=== PATIENT | male | born 1960 | race Hispanic/Latino ===

== ENCOUNTER 2020-09-06 13:52 | Inpatient (IN) | payer SELFPAY ==
[2020-09-06] MEDS ORDERED: Norepinephrine 8 MG/0.9% NS 250 ML ONE ×2 (13:57→19:58)
[2020-09-06 14:35] LABS: #Lymphocytes 0.8 thou/uL (1.20-3.40); #Monocytes 0.5 thou/uL (0.11-0.59); #Neutrophils 9.8 thou/uL (1.40-6.50); %Basophils 0.3 % (0.0-1.0); %Eosinophils 0.4 % (0.0-10.0); %Lymphocytes 7.3 % (21.0-51.0); %Monocytes 4.6 % (0.0-10.0); %Neutrophils 87.5 % (42.0-75.0); Hemoglobin 7.7 g/dL (14.0-18.0); Mean Corpuscular HGB CONC 35.1 g/dL (32.0-36.0); Mean Corpuscular Hemoglobin 37.4 pg (27.0-31.0); Platelet Count 153 thou/uL (130-400); RBC Distribution Width 16.4 % (11.5-14.5); Red Blood Cell (RBC) Count 2.05 mill/uL (4.70-6.10); White Blood Cell (WBC) Count 11.2 thou/uL (4.8-10.8)
[2020-09-06 14:40] LABS: INR-International Normal Ratio 2.2; Prothrombin Time 24.7 sec (12.0-14.7)
[2020-09-06 14:41] LABS: PTT 45.8 sec (22.9-36.1)
[2020-09-06 14:48] LABS: ALT (SGPT) 54 U/L (8-55); AST (SGOT) 173 U/L (5-34); Albumin 2.1 g/dL (3.5-5.0); Alkaline Phosphatase 196 U/L (40-110); Bilirubin, Total 22.4 mg/dL (0.2-1.2); Protein, Total 4.8 g/dL (6.0-8.3)
[2020-09-06 14:49] LABS: ALT (SGPT) 55 U/L (8-55); AST (SGOT) 184 U/L (5-34); Albumin 2.1 g/dL (3.5-5.0); Alkaline Phosphatase 201 U/L (40-110); Anion Gap 25 mmol/L (10-20); BUN (Urea Nitrogen) 49 mg/dL (8.4-25.7); Bilirubin, Total 22.1 mg/dL (0.2-1.2); Calc. Creatinine Clearance 0 mL/min (70-130); Calcium 6.4 mg/dL (7.8-10.44); Carbon Dioxide 15 mmol/L (22-29); Chloride 88 mmol/L (98-107); Globulin 2.6 g/dL (2.4-3.5); Glucose 86 mg/dL (70-105); Protein, Total 4.7 g/dL (6.0-8.3); Sodium 125 mmol/L (136-145)
[2020-09-06 14:50] LABS: Acetaminophen Less than 6.0 mcg/mL (10.0-30.0); Alcohol Less than 10 mg/dL (Less than 10); Salicylate Less than 8.0 mg/dL (15.0-30.0)
[2020-09-06 14:54] LABS: Potassium 2.8 mmol/L (3.5-5.1)
[2020-09-06 14:55] LABS: Anisocytosis SLIGHT = 6-15 cells (100X) (0-5/hpf); MDiff Complete? YES; Macrocytosis SLIGHT = 6-15 cells (100X) (0-5/hpf); Platelet Morphology Comment Appears Adequate; Polychromasia MODERATE = 3-4 cells (100X) (0-2/hpf); Schistocytes SLIGHT = 2-5 cells (100X) (0-1/hpf); Target Cells MODERATE= 6-15 cells (100X) (0-1/hpf)
[2020-09-06] MEDS ORDERED: Succinylcholine 200 MG/10 ml SYRINGE FS ONE (15:00)
[2020-09-06 15:10] LABS: CKMB 5.1 ng/mL (0-6.6)
[2020-09-06 15:17] LABS: Bilirubin, Direct 16.4 mg/dL (0.1-0.3)
[2020-09-06 15:26] LABS: Bilirubin 2+ (Negative); Blood, Urine 3+ (Negative); Clarity Turbid (Clear); Glucose, Urine (Dipstick) 70 mg/dL (Negative); Ketone, Urine Negative (Negative); Leukocyte Negative Leu/uL (Negative); Nitrite Negative (Negative); Protein, Urine (Dipstick) 20 mg/dL (Neg-Trace); RBC/HPF 0-3 HPF (0-3); Specific Gravity, Urine 1.009 (1.002-1.036); Squamous Epithelial 0-3 HPF (0-3); Urobilinogen Normal mg/dL (Less than 2); WBC/HPF 0-3 HPF (0-3); pH, Urine 6.5 (5.0-9.0)
[2020-09-06 15:27] LABS: Amphetamine Not Detected (NotDetected); Barbiturates Screen Not Detected (NotDetected); Benzodiazepine Screen Not Detected (NotDetected); Cocaine Metabolite Screen Not Detected (NotDetected); Medtox Control Line Valid? VALID (VALID); Medtox Reader # READER 1; Methadone Not Detected (NotDetected); Methamphetamine Not Detected (NotDetected); Opiate Screen Not Detected (NotDetected); Oxycodone Screen Not Detected (NotDetected); Phencyclidine (PCP) Not Detected (NotDetected); THC/Cannabinoid Screen Not Detected (NotDetected); Tricyclic Screen Not Detected (NotDetected)
[2020-09-06 15:28] LABS: Bacteria/HPF 1+ HPF (None Seen)
[2020-09-06] MEDS ORDERED: Potassium Chloride 40 MEQ in Sodium Chloride 0.9% 250 ML 250 ML IVPB SCH (15:30)
[2020-09-06 15:59] LABS: SARS-CoV-2 NAA Rapid Test Not Detected (NotDetected)
[2020-09-06] MEDS ORDERED: Cefepime 2 GM VIAL ONE (15:59)
[2020-09-06 18:00] LABS: Lactic Acid 3.9 mmol/L (0.5-2.2)
[2020-09-06] MEDS ORDERED: METRONIDAZOLE IVPB ONE (18:00)
[2020-09-06] MEDS ORDERED: VANCOMYCIN 1.75 GM/350 ML BAG 1.75 GM in Premix Bag 1 BAG IVPB ONE (18:15)
[2020-09-06] MEDS ORDERED: Magnesium 2 GM/50 ML BAG (IN WATER) ONE (19:03)
[2020-09-06 19:23] LABS: HBCM Index 0.05 S/CO (0-0.79); HBSAg Index 0.15 S/CO (0-0.99); Hep A IgM AB Non-Reactive (NonReactive); Hep A IgM S/CO 0.11 S/CO (0-0.79); Hep B Surf Ag Non-Reactive S/CO (NonReactive); Hep C IgG Ab Non-Reactive (NonReactive); Hep C Index 0.39 S/CO (0-0.79); Hepatitis B Core IgM Abs Non-Reactive (NonReactive)
[2020-09-06] MEDS ORDERED: Albumin 25% 25 GM/100 ML BOT IVPB SCH (20:11)
[2020-09-06] MEDS ORDERED: Ondansetron PF 4 MG/2 ML Vial IVP PRN (20:49)
[2020-09-06] MEDS ORDERED: Multivitamins, Adult 10 ML, Folic Acid 1 MG, Thiamine HCl 100 MG in Dextrose 5 %-0.45 %... IV SCH (21:00)
[2020-09-06] MEDS ORDERED: Sodium Bicarb 50 MEQ/50 ML Abboject 8.4% SYRINGE IVP SCH (22:00)
[2020-09-06 22:42] LABS: Anion Gap 25 mmol/L (10-20); BUN (Urea Nitrogen) 48 mg/dL (8.4-25.7); Calc. Creatinine Clearance 0 mL/min (70-130); Calcium 6.7 mg/dL (7.8-10.44); Carbon Dioxide 15 mmol/L (22-29); Chloride 94 mmol/L (98-107); Glucose 121 mg/dL (70-105); Sodium 131 mmol/L (136-145)
[2020-09-06 22:48] LABS: Potassium 2.5 mmol/L (3.5-5.1)
[2020-09-06 22:55] VITALS: BMI 33.5
[2020-09-06] MEDS: Multivitamins, Adult 10 ML, Folic Acid 1 MG, Thiamine HCl 100 MG in Dextrose 5 %-0.45 %... IV SCH (23:08)
[2020-09-06] MEDS: Octreotide Acetate 100 MCG/ML VIAL SC SCH (23:36)
[2020-09-07] MEDS ORDERED: Potassium Chloride 40 MEQ in Premix Bag 1 BAG IVPB SCH ×2 (00:15→06:15)
[2020-09-07] MEDS ORDERED: Magnesium 2 GM/50 ML 2 GM in Premix Bag 1 BAG IVPB SCH (00:15)
[2020-09-07] MEDS: Norepinephrine 8 MG/0.9% NS 250 ML IVPB SCH ×4 (00:16→16:28)
[2020-09-07 05:10] LABS: #Lymphocytes 0.6 thou/uL (1.20-3.40); #Monocytes 0.5 thou/uL (0.11-0.59); #Neutrophils 8.3 thou/uL (1.40-6.50); %Basophils 0.4 % (0.0-1.0); %Eosinophils 0.4 % (0.0-10.0); %Lymphocytes 6.3 % (21.0-51.0); %Monocytes 5.4 % (0.0-10.0); %Neutrophils 87.5 % (42.0-75.0); Hemoglobin 6.8 g/dL (14.0-18.0); Mean Corpuscular HGB CONC 35.4 g/dL (32.0-36.0); Mean Corpuscular Hemoglobin 37.8 pg (27.0-31.0); Mean Platelet Volume 7.3 fL (7.4-10.4); Platelet Count 133 thou/uL (130-400); RBC Distribution Width 16.2 % (11.5-14.5); Red Blood Cell (RBC) Count 1.81 mill/uL (4.70-6.10); White Blood Cell (WBC) Count 9.5 thou/uL (4.8-10.8)
[2020-09-07 05:50] LABS: ALT (SGPT) 48 U/L (8-55); AST (SGOT) 148 U/L (5-34); Albumin 3.2 g/dL (3.5-5.0); Alkaline Phosphatase 162 U/L (40-110); Anion Gap 27 mmol/L (10-20); BUN (Urea Nitrogen) 47 mg/dL (8.4-25.7); Bilirubin, Total 23.7 mg/dL (0.2-1.2); Calc. Creatinine Clearance 33 mL/min (70-130); Calcium 6.9 mg/dL (7.8-10.44); Carbon Dioxide 15 mmol/L (22-29); Chloride 94 mmol/L (98-107); Globulin 2.2 g/dL (2.4-3.5); Glucose 179 mg/dL (70-105); Magnesium 2.5 mg/dL (1.6-2.6); Protein, Total 5.4 g/dL (6.0-8.3); Sodium 133 mmol/L (136-145)
[2020-09-07 06:00] LABS: Potassium 2.6 mmol/L (3.5-5.1)
[2020-09-07] MEDS: Midodrine HCl 5 MG TAB PO SCH ×5 (06:36→21:25)
[2020-09-07] MEDS: Octreotide Acetate 100 MCG/ML VIAL SC SCH ×3 (06:40→21:18)
[2020-09-07] MEDS ORDERED: Oxazepam 10 MG CAP PO PRN (07:35)
[2020-09-07] MEDS ORDERED: Pantoprazole 40 MG VIAL IVP SCH (09:00)
[2020-09-07] MEDS ORDERED: Midodrine HCl 5 MG TAB PO SCH ×2 (09:15→10:30)
[2020-09-07] MEDS ORDERED: Lorazepam 2 MG/ML VIAL SLOW IVP PRN ×2 (09:52→09:57)
[2020-09-07] MEDS ORDERED: Magnesium 2 GM/50 ML 2 GM in Premix Bag 1 BAG IVPB PRN (09:52)
[2020-09-07] MEDS ORDERED: Lactated Ringer's 500 ML IV SCH ×2 (10:00)
[2020-09-07] MEDS: Lactated Ringer's 1,000 ML IV SCH ×2 (10:26→23:00)
[2020-09-07 10:49] LABS: Actual Bicarbonate (HCO3a) 16.7 mEq/L (22-28); Base Excess (BEa) -6.9 mEq/L (-2.0 to +3.0); CO2 Tension 26.3 mmHg (35.0-45.0); Hemoglobin (Hb) 7.3 g/dL (14.0-18.0); Potassium - ABG Lab 2.57 mmol/L (3.70-5.30); pH, Arterial 7.42 (7.35-7.45)
[2020-09-07 10:50] LABS: O2 Tension (PaO2), arterial 53.5 mmHg (80.0-100.0)
[2020-09-07 10:51] LABS: Puncture Site LBA
[2020-09-07] MEDS: Phytonadione 5 MG TAB PO SCH (11:16)
[2020-09-07] MEDS ORDERED: Sodium Chloride 0.9% (PF) 10 ML VIAL FS PRN (11:45)
[2020-09-07 13:18] LABS: Creatinine, Urine 75.11 mg/dL (63-166); Sodium, Urine Less than 20 mmol/L (Not Available)
[2020-09-07] MEDS: Cefepime 1 GM in Sodium Chloride 0.9% 100 ML IVPB SCH (16:28)
[2020-09-07] MEDS: Fluconazole In NaCl,Iso-Osm 200 MG in Premix Bag 1 BAG IVPB SCH (17:58)
[2020-09-07 18:35] LABS: Hemoglobin 7.7 g/dL (14.0-18.0); Platelet Count 131 thou/uL (130-400)
[2020-09-07 18:53] LABS: Vancomycin, Random 15.3 ug/mL (See Comment)
[2020-09-07] MEDS ORDERED: Vancomycin HCl 750 MG in Sodium Chloride 0.9% 250 ML 250 ML IVPB SCH (20:00)
[2020-09-07 20:36] LABS: Potassium 2.4 mmol/L (3.5-5.1)
[2020-09-07] MEDS ORDERED: Potassium ACETATE 40 MEQ in Sodium Chloride 0.9% 250 ML 250 ML IV SCH (20:45)
[2020-09-07] MEDS: Pantoprazole 40 MG VIAL IVP SCH (21:18)
[2020-09-07] MEDS ORDERED: Norepinephrine 8 MG/0.9% NS 250 ML ONE (21:21)
[2020-09-07 21:46] LABS: Actual Bicarbonate (HCO3a) 18.2 mEq/L (22-28); CO2 Tension 30.9 mmHg (35.0-45.0); Calcium, Ionized (arterial) 0.94 mmol/L (1.12-1.30); Carboxyhemoglobin (COHb) 1.5 gm% (0.0-3.0); Potassium - ABG Lab 2.38 mmol/L (3.70-5.30); pH, Arterial 7.39 (7.35-7.45)
[2020-09-07 21:48] LABS: ALV-art Gradient 165.055 mmHg (0-20); Puncture Site RBA
[2020-09-07] MEDS: Multivitamins, Adult 10 ML, Folic Acid 1 MG, Thiamine HCl 100 MG in Dextrose 5 %-0.45 %... IV SCH (23:00)
[2020-09-07] MEDS: Lorazepam 2 MG/ML VIAL SLOW IVP PRN (23:16)
[2020-09-07] MEDS: Haloperidol Lactate 5 MG/ML VIAL IM PRN (23:17)
[2020-09-08] MEDS: Lorazepam 2 MG/ML VIAL SLOW IVP PRN ×3 (01:12→19:01)
[2020-09-08] MEDS: Norepinephrine 8 MG/0.9% NS 250 ML IVPB SCH ×7 (03:00→22:34)
[2020-09-08] MEDS: Haloperidol Lactate 5 MG/ML VIAL IM PRN (04:45)
[2020-09-08 04:54] LABS: Phosphorus 2.9 mg/dL (2.3-4.7)
[2020-09-08 05:02] LABS: Prothrombin Time 23.1 sec (12.0-14.7)
[2020-09-08 05:05] LABS: ALT (SGPT) 57 U/L (8-55); AST (SGOT) 140 U/L (5-34); Albumin 2.9 g/dL (3.5-5.0); Alkaline Phosphatase 155 U/L (40-110); Anion Gap 17 mmol/L (10-20); BUN (Urea Nitrogen) 38 mg/dL (8.4-25.7); Calc. Creatinine Clearance 53 mL/min (70-130); Carbon Dioxide 20 mmol/L (22-29); Chloride 103 mmol/L (98-107); Globulin 2.2 g/dL (2.4-3.5); Glucose 199 mg/dL (70-105); Magnesium 2.1 mg/dL (1.6-2.6); Potassium 2.6 mmol/L (3.5-5.1); Protein, Total 5.1 g/dL (6.0-8.3); Sodium 137 mmol/L (136-145)
[2020-09-08 05:08] LABS: #Eosinphils 0.1 thou/uL (0.0-0.7); #Lymphocytes 0.8 thou/uL (1.20-3.40); #Monocytes 0.6 thou/uL (0.11-0.59); #Neutrophils 8.9 thou/uL (1.40-6.50); %Eosinophils 0.5 % (0.0-10.0); %Lymphocytes 7.7 % (21.0-51.0); %Monocytes 5.6 % (0.0-10.0); %Neutrophils 86.2 % (42.0-75.0); Hemoglobin 7.7 g/dL (14.0-18.0); Mean Corpuscular HGB CONC 34.9 g/dL (32.0-36.0); Mean Platelet Volume 7.1 fL (7.4-10.4); Platelet Count 129 thou/uL (130-400); RBC Distribution Width 19.6 % (11.5-14.5); Red Blood Cell (RBC) Count 2.14 mill/uL (4.70-6.10); White Blood Cell (WBC) Count 10.3 thou/uL (4.8-10.8)
[2020-09-08 05:11] LABS: Bilirubin, Total 24.8 mg/dL (0.2-1.2)
[2020-09-08] MEDS ORDERED: Potassium ACETATE 40 MEQ in Sodium Chloride 0.9% 250 ML 250 ML IV PRN (05:20)
[2020-09-08] MEDS ORDERED: Propofol 1,000 MG/100 ML VIAL IV ONE (05:21)
[2020-09-08] MEDS: Octreotide Acetate 100 MCG/ML VIAL SC SCH ×3 (05:22→22:38)
[2020-09-08] MEDS ORDERED: Fentanyl BOLUS 250 ML IVPB PRN (05:30)
[2020-09-08] MEDS ORDERED: Morphine 2 MG/ML VIAL SLOW IVP PRN (05:30)
[2020-09-08] MEDS ORDERED: DISCONTINUE PREVIOUS NARCOTIC PAIN MEDICATIONS AND BENZODIAZEPINES FS SCH (05:30)
[2020-09-08] MEDS ORDERED: Propofol BOLUS 1,000 MG/100 ML VIAL IV PRN (05:30)
[2020-09-08] MEDS ORDERED: Propofol 1,000 MG/100 ML VIAL IV PRN (05:30)
[2020-09-08] MEDS ORDERED: Succinylcholine 200 MG/10 ml SYRINGE FS SCH (06:00)
[2020-09-08] MEDS ORDERED: Fentanyl CADD 0 ML ONE (06:02)
[2020-09-08] MEDS ORDERED: Fentanyl CADD 100 ML ONE ×2 (06:03→15:52)
[2020-09-08] MEDS: Fentanyl CADD 100 ML IV SCH (06:09)
[2020-09-08] MEDS ORDERED: Lactated Ringer's 500 ML IV SCH (07:15)
[2020-09-08] MEDS: Lactated Ringer's 1,000 ML IV SCH ×3 (07:51→20:44)
[2020-09-08 08:20] LABS: Actual Bicarbonate (HCO3a) 19.2 mEq/L (22-28); Base Excess (BEa) -4.9 mEq/L (-2.0 to +3.0); Calcium, Ionized (arterial) 0.96 mmol/L (1.12-1.30); Carboxyhemoglobin (COHb) 0.8 gm% (0.0-3.0); Hemoglobin (Hb) 7.9 g/dL (14.0-18.0); Potassium - ABG Lab 2.25 mmol/L (3.70-5.30); pH, Arterial 7.41 (7.35-7.45)
[2020-09-08 08:23] LABS: Puncture Site LRA
[2020-09-08] MEDS: Folic Acid 1 MG TAB PO SCH (11:58)
[2020-09-08] MEDS: Midodrine HCl 5 MG TAB PO SCH ×3 (11:58→21:00)
[2020-09-08] MEDS: Pantoprazole 40 MG VIAL IVP SCH ×2 (12:21→21:00)
[2020-09-08] MEDS: Phytonadione 5 MG TAB PO SCH (12:48)
[2020-09-08] MEDS: Cefepime 1 GM in Sodium Chloride 0.9% 100 ML IVPB SCH (16:52)
[2020-09-08] MEDS: Fluconazole In NaCl,Iso-Osm 200 MG in Premix Bag 1 BAG IVPB SCH (17:42)
[2020-09-08] MEDS: Potassium ACETATE 40 MEQ in Sodium Chloride 0.9% 250 ML 250 ML IV PRN (19:51)
[2020-09-08 20:23] LABS: Vancomycin, Random 12.2 ug/mL (See Comment)
[2020-09-08] MEDS ORDERED: VANCOMYCIN 1.25 GM/250 ML BAG 1.25 GM in Premix Bag 1 BAG IVPB SCH (21:00)
[2020-09-08] MEDS: Multivitamins, Adult 10 ML, Folic Acid 1 MG, Thiamine HCl 100 MG in Dextrose 5 %-0.45 %... IV SCH (22:53)
[2020-09-09] MEDS ORDERED: Fentanyl CADD 100 ML ONE ×2 (02:06→12:17)
[2020-09-09] MEDS: Fentanyl CADD 100 ML IV SCH (02:09)
[2020-09-09] MEDS: Norepinephrine 8 MG/0.9% NS 250 ML IVPB SCH ×6 (02:49→23:26)
[2020-09-09 02:58] LABS: #Eosinphils 0.2 thou/uL (0.0-0.7); #Lymphocytes 1.4 thou/uL (1.20-3.40); #Monocytes 0.6 thou/uL (0.11-0.59); #Neutrophils 8.4 thou/uL (1.40-6.50); %Basophils 0.2 % (0.0-1.0); %Eosinophils 1.6 % (0.0-10.0); %Lymphocytes 13.4 % (21.0-51.0); %Monocytes 5.7 % (0.0-10.0); %Neutrophils 79.1 % (42.0-75.0); Hemoglobin 8.8 g/dL (14.0-18.0); Mean Corpuscular HGB CONC 36.2 g/dL (32.0-36.0); Mean Corpuscular Hemoglobin 37.5 pg (27.0-31.0); Mean Platelet Volume 7.3 fL (7.4-10.4); Platelet Count 139 thou/uL (130-400); RBC Distribution Width 20.4 % (11.5-14.5); Red Blood Cell (RBC) Count 2.36 mill/uL (4.70-6.10); White Blood Cell (WBC) Count 10.7 thou/uL (4.8-10.8)
[2020-09-09] MEDS: Potassium ACETATE 40 MEQ in Sodium Chloride 0.9% 250 ML 250 ML IV PRN (03:45)
[2020-09-09 03:49] LABS: ALT (SGPT) 63 U/L (8-55); AST (SGOT) 140 U/L (5-34); Alkaline Phosphatase 155 U/L (40-110); Anion Gap 17 mmol/L (10-20); BUN (Urea Nitrogen) 27 mg/dL (8.4-25.7); Calc. Creatinine Clearance 96 mL/min (70-130); Calcium 7.4 mg/dL (7.8-10.44); Carbon Dioxide 20 mmol/L (22-29); Chloride 108 mmol/L (98-107); Globulin 2.2 g/dL (2.4-3.5); Glucose 208 mg/dL (70-105); Magnesium 1.7 mg/dL (1.6-2.6); Potassium 1.9 mmol/L (3.5-5.1); Protein, Total 5.2 g/dL (6.0-8.3); Sodium 143 mmol/L (136-145)
[2020-09-09 03:54] LABS: Bilirubin, Total 24.2 mg/dL (0.2-1.2)
[2020-09-09] MEDS: Lorazepam 2 MG/ML VIAL SLOW IVP PRN (05:31)
[2020-09-09] MEDS: Octreotide Acetate 100 MCG/ML VIAL SC SCH ×3 (06:38→21:14)
[2020-09-09 07:55] LABS: Actual Bicarbonate (HCO3a) 19.7 mEq/L (22-28); Base Excess (BEa) -3.1 mEq/L (-2.0 to +3.0); CO2 Tension 27.1 mmHg (35.0-45.0); Calcium, Ionized (arterial) 1.01 mmol/L (1.12-1.30); Carboxyhemoglobin (COHb) 0.8 gm% (0.0-3.0); Hemoglobin (Hb) 8.6 g/dL (14.0-18.0); Potassium - ABG Lab 2.15 mmol/L (3.70-5.30); pH, Arterial 7.48 (7.35-7.45)
[2020-09-09 08:02] LABS: ALV-art Gradient 550.625 mmHg (0-20); O2 Tension (PaO2), arterial 57.2 mmHg (80.0-100.0); Puncture Site RRA
[2020-09-09] MEDS: Potassium Chloride 40 MEQ in Sodium Chloride 0.9% 250 ML 250 ML IVPB SCH ×3 (09:09→17:54)
[2020-09-09] MEDS: Phytonadione 5 MG TAB PO SCH (09:17)
[2020-09-09] MEDS: Folic Acid 1 MG TAB PO SCH (09:18)
[2020-09-09] MEDS: Pantoprazole 40 MG VIAL IVP SCH ×2 (09:18→21:14)
[2020-09-09] MEDS: Midodrine HCl 5 MG TAB PO SCH ×3 (09:20→21:15)
[2020-09-09] MEDS: Hydrocortisone Sod Succ/PF 100 mg/2 ml Vial IVP SCH ×3 (12:31→23:27)
[2020-09-09] MEDS: Cefepime 1 GM in Sodium Chloride 0.9% 100 ML IVPB SCH (16:00)
[2020-09-09] MEDS: Fluconazole In NaCl,Iso-Osm 200 MG in Premix Bag 1 BAG IVPB SCH (17:54)
[2020-09-09 21:13] LABS: Potassium 3.5 mmol/L (3.5-5.1)
[2020-09-09] MEDS: Vancomycin HCl 1.25 GM in Sodium Chloride 0.9% 250 ML 250 ML IVPB SCH (21:14)
[2020-09-09] MEDS: Lactated Ringer's 1,000 ML IV SCH (21:15)
[2020-09-09 23:07] VITALS: BP 119/74
[2020-09-09] MEDS: Multivitamins, Adult 10 ML, Folic Acid 1 MG, Thiamine HCl 100 MG in Dextrose 5 %-0.45 %... IV SCH (23:26)
[2020-09-10] MEDS: Lorazepam 2 MG/ML VIAL SLOW IVP PRN (03:49)
[2020-09-10 04:00] LABS: INR-International Normal Ratio 1.8; Prothrombin Time 21.6 sec (12.0-14.7)
[2020-09-10 04:15] LABS: ALT (SGPT) 70 U/L (8-55); AST (SGOT) 169 U/L (5-34); Albumin 2.7 g/dL (3.5-5.0); Alkaline Phosphatase 166 U/L (40-110); Anion Gap 17 mmol/L (10-20); BUN (Urea Nitrogen) 25 mg/dL (8.4-25.7); Calc. Creatinine Clearance 126 mL/min (70-130); Calcium 7.4 mg/dL (7.8-10.44); Carbon Dioxide 18 mmol/L (22-29); Chloride 119 mmol/L (98-107); Globulin 2.6 g/dL (2.4-3.5); Glucose 249 mg/dL (70-105); Magnesium 1.7 mg/dL (1.6-2.6); Protein, Total 5.3 g/dL (6.0-8.3); Sodium 151 mmol/L (136-145)
[2020-09-10 04:17] LABS: Potassium 2.9 mmol/L (3.5-5.1)
[2020-09-10 04:25] LABS: Bilirubin, Total 24.9 mg/dL (0.2-1.2)
[2020-09-10] MEDS: Potassium ACETATE 40 MEQ in Sodium Chloride 0.9% 250 ML 250 ML IV PRN (04:57)
[2020-09-10] MEDS: Hydrocortisone Sod Succ/PF 100 mg/2 ml Vial IVP SCH ×4 (05:18→23:16)
[2020-09-10] MEDS: Octreotide Acetate 100 MCG/ML VIAL SC SCH ×3 (05:18→21:08)
[2020-09-10 05:45] LABS: #Lymphocytes 1.5 thou/uL (1.20-3.40); #Monocytes 0.4 thou/uL (0.11-0.59); #Neutrophils 9.1 thou/uL (1.40-6.50); %Eosinophils 0.3 % (0.0-10.0); %Lymphocytes 13.2 % (21.0-51.0); %Monocytes 3.7 % (0.0-10.0); %Neutrophils 82.8 % (42.0-75.0); Anisocytosis SLIGHT = 6-15 cells (100X) (0-5/hpf); Hemoglobin 8.8 g/dL (14.0-18.0); MDiff Complete? YES; Macrocytosis SLIGHT = 6-15 cells (100X) (0-5/hpf); Mean Corpuscular HGB CONC 34.7 g/dL (32.0-36.0); Mean Corpuscular Hemoglobin 36.4 pg (27.0-31.0); Mean Platelet Volume 7.6 fL (7.4-10.4); Platelet Count 158 thou/uL (130-400); Platelet Morphology Comment Appears Adequate; RBC Distribution Width 20.6 % (11.5-14.5); Red Blood Cell (RBC) Count 2.41 mill/uL (4.70-6.10); Target Cells SLIGHT = 2-5 cells (100X) (0-1/hpf)
[2020-09-10] MEDS: Norepinephrine 8 MG/0.9% NS 250 ML IVPB SCH ×2 (06:33→18:12)
[2020-09-10] MEDS ORDERED: Dextrose 5% in Water 1,000 ML IV SCH (07:15)
[2020-09-10 07:35] LABS: Actual Bicarbonate (HCO3a) 17.4 mEq/L (22-28); Base Excess (BEa) -5.1 mEq/L (-2.0 to +3.0); Calcium, Ionized (arterial) 1.05 mmol/L (1.12-1.30); Carboxyhemoglobin (COHb) 0.8 gm% (0.0-3.0); Hemoglobin (Hb) 8.9 g/dL (14.0-18.0); Potassium - ABG Lab 2.95 mmol/L (3.70-5.30); pH, Arterial 7.48 (7.35-7.45)
[2020-09-10 07:37] LABS: CO2 Tension 23.9 mmHg (35.0-45.0); O2 Tension (PaO2), arterial 54.2 mmHg (80.0-100.0); Puncture Site RBA
[2020-09-10 07:38] LABS: ALV-art Gradient 486.325 mmHg (0-20)
[2020-09-10] MEDS ORDERED: Potassium Chloride 40 MEQ in Premix Bag 1 BAG IVPB SCH (07:45)
[2020-09-10] MEDS: Folic Acid 1 MG TAB PO SCH (09:34)
[2020-09-10] MEDS: Pantoprazole 40 MG VIAL IVP SCH ×2 (09:34→21:09)
[2020-09-10] MEDS: Midodrine HCl 5 MG TAB PO SCH ×3 (09:34→21:08)
[2020-09-10] MEDS: Phytonadione 5 MG TAB PO SCH (10:05)
[2020-09-10] MEDS: Cefepime 1 GM in Sodium Chloride 0.9% 100 ML IVPB SCH (15:14)
[2020-09-10] MEDS: Saccharomyces boulardii 250 MG CAP PER TUBE SCH (17:00)
[2020-09-10] MEDS: Fluconazole In NaCl,Iso-Osm 200 MG in Premix Bag 1 BAG IVPB SCH (17:00)
[2020-09-10] MEDS: Potassium Chloride 40 MEQ in Dextrose 5% in Water 1,000 ML IV SCH (17:04)
[2020-09-10 18:35] LABS: Potassium 3.6 mmol/L (3.5-5.1)
[2020-09-10 20:34] LABS: Vancomycin, Trough 15.5 ug/mL
[2020-09-10] MEDS ORDERED: Fentanyl CADD 100 ML ONE (21:06)
[2020-09-10] MEDS: Fentanyl CADD 100 ML IV SCH (21:07)
[2020-09-10] MEDS: Vancomycin HCl 1.25 GM in Sodium Chloride 0.9% 250 ML 250 ML IVPB SCH (23:17)
[2020-09-11 05:28] LABS: Hemoglobin 8.6 g/dL (14.0-18.0); Mean Corpuscular HGB CONC 33.4 g/dL (32.0-36.0); Mean Corpuscular Hemoglobin 35.6 pg (27.0-31.0); Mean Platelet Volume 7.4 fL (7.4-10.4); Platelet Count 163 thou/uL (130-400); RBC Distribution Width 21.2 % (11.5-14.5); Red Blood Cell (RBC) Count 2.42 mill/uL (4.70-6.10); White Blood Cell (WBC) Count 14.9 thou/uL (4.8-10.8)
[2020-09-11 05:33] LABS: ALT (SGPT) 72 U/L (8-55); AST (SGOT) 153 U/L (5-34); Albumin 2.6 g/dL (3.5-5.0); Alkaline Phosphatase 165 U/L (40-110); Anion Gap 15 mmol/L (10-20); BUN (Urea Nitrogen) 35 mg/dL (8.4-25.7); Bilirubin, Total 23.1 mg/dL (0.2-1.2); Calc. Creatinine Clearance 88 mL/min (70-130); Calcium 7.2 mg/dL (7.8-10.44); Carbon Dioxide 18 mmol/L (22-29); Chloride 120 mmol/L (98-107); Globulin 2.5 g/dL (2.4-3.5); Glucose 223 mg/dL (70-105); Potassium 3.6 mmol/L (3.5-5.1); Protein, Total 5.1 g/dL (6.0-8.3); Sodium 149 mmol/L (136-145)
[2020-09-11 06:05] LABS: Anisocytosis SLIGHT = 6-15 cells (100X) (0-5/hpf); Band 5 % (5-11); Lymphocytes 4 % (21-51); MDiff Complete? YES; Macrocytosis SLIGHT = 6-15 cells (100X) (0-5/hpf); Monocytes 4 % (0-10); Myelocyte 3 % (0-0); Neutrophil 84 % (42-75); Nucleated RBC 3 % (0); Polychromasia SLIGHT = 2-3 cells (100X) (0-2/hpf); Target Cells SLIGHT = 2-5 cells (100X) (0-1/hpf)
[2020-09-11] MEDS: Hydrocortisone Sod Succ/PF 100 mg/2 ml Vial IVP SCH ×3 (06:07→19:37)
[2020-09-11] MEDS: Norepinephrine 8 MG/0.9% NS 250 ML IVPB SCH (08:12)
[2020-09-11] MEDS ORDERED: Multivits W-Minerals Liquid 15 ML LIQ PER TUBE SCH (09:00)
[2020-09-11] MEDS ORDERED: Thiamine 100 MG TAB PER TUBE SCH (09:00)
[2020-09-11] MEDS: Octreotide Acetate 100 MCG/ML VIAL SC SCH ×2 (09:25→16:41)
[2020-09-11] MEDS: Folic Acid 1 MG TAB PO SCH (09:25)
[2020-09-11] MEDS: Potassium Chloride 40 MEQ in Dextrose 5% in Water 1,000 ML IV SCH (09:28)
[2020-09-11] MEDS: Pantoprazole 40 MG VIAL IVP SCH (09:29)
[2020-09-11] MEDS ORDERED: Hyoscyamine Sulfate SL 0.125 mg Tablet PO PRN (09:52)
[2020-09-11] MEDS ORDERED: Scopolamine 1.5 mg/72 hour Patch TD SCH (10:00)
[2020-09-11] MEDS: Cefepime 1 GM in Sodium Chloride 0.9% 100 ML IVPB SCH (16:41)
[2020-09-11] MEDS ORDERED: Morphine 4 MG/ML VIAL SLOW IVP PRN (16:58)
[2020-09-11] MEDS: Saccharomyces boulardii 250 MG CAP PER TUBE SCH (19:37)
[2020-09-11] MEDS: Fluconazole In NaCl,Iso-Osm 200 MG in Premix Bag 1 BAG IVPB SCH (19:37)
[2020-09-11 20:44] VITALS: TEMP 94.9
== END 2020-09-11 22:21 | disposition expired | DRG 871 ==
LOC: ERS 13:52 → CCU 19:55
PROVIDERS: ADMIT Internal Medicine; ATTEND Internal Medicine
PROC: 3E033XZ Introduction of Vasopressor into Peripheral Vein, Percutaneous Approach (ICD-10-PCS; principal; 2020-09-07)
PROC: 0BH17EZ Insertion of Endotracheal Airway into Trachea, Via Natural or Artificial Opening (ICD-10-PCS; 2020-09-08)
PROC: HZ2ZZZZ Detoxification Services for Substance Abuse Treatment (ICD-10-PCS; 2020-09-08)
PROC: 5A1945Z Respiratory Ventilation, 24-96 Consecutive Hours (ICD-10-PCS; 2020-09-08)
DX: A41.9 Sepsis, unspecified organism (principal); R65.21 Severe sepsis with septic shock; G93.41 Metabolic encephalopathy; N18.6 End stage renal disease; J96.01 Acute respiratory failure with hypoxia; N17.9 Acute kidney failure, unspecified; E87.2 Acidosis; E87.1 Hypo-osmolality and hyponatremia; D68.9 Coagulation defect, unspecified; F10.239 Alcohol dependence with withdrawal, unspecified; E87.0 Hyperosmolality and hypernatremia; I12.0 Hypertensive chronic kidney disease with stage 5 chronic kidney disease or end stage renal disease; Z66 Do not resuscitate; E87.6 Hypokalemia; E83.42 Hypomagnesemia; F17.210 Nicotine dependence, cigarettes, uncomplicated; K70.10 Alcoholic hepatitis without ascites; E83.51 Hypocalcemia; L30.4 Erythema intertrigo; R33.9 Retention of urine, unspecified; D53.9 Nutritional anemia, unspecified; K72.90 Hepatic failure, unspecified without coma
CPT/HCPCS: 0240U; 36415; 36430; 36600; 71045; 74176; 76705; 76770; 80053; 80074; 80202; 80306; 80307; 81003; 81015; 82140; 82553; 82570; 82805; 83605; 83690; 83735; 83880; 84100; 84300; 84484; 85025; 85610; 85652; 85730; 86140; 86850; 86900; 86901; 87040; 87070; 87077; 87086; 87149; 87186; 87205; 93005; 94002; 94003; 94640; 94660; C9113; J0692; J1450; J1630; J1720; J2060; J2354; J2704; J3010; J3370; J3411; J3475; J3480; J3490; J7042; J7050; J7070; J7620; P9016; P9045; P9047